=== PATIENT | female | born 1990 ===

== ENCOUNTER 2021-02-03 05:10 | Emergency (ER) | payer SELFPAY ==
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
--- NOTE | 2021-02-03 05:51 | CR ---
For Patients: As a result of the Cures Act, medical imaging exams and procedure reports are released immediately into your electronic medical record. You may view this report before your referring provider. If you have questions, please contact your health care provider. INDICATION: Pain, laceration. TECHNIQUE: Right elbow radiographs, 3 views. COMPARISON: None available. FINDINGS: Posterior elbow demonstrates large soft tissue irregularity overlying the olecranon. No radiopaque foreign body or soft tissue gas identified. No dislocation, acute fracture, or definite joint effusion. The joint spaces appear maintained. IMPRESSION: Right posterior elbow soft tissue injury. No acute osseous abnormality or radiopaque foreign body. Dictated by Joel Bourne MD @ 02/03/2021 5:49:03 AM Dictated by: Joel Bourne MD @ 02/03/2021 05:49:12 (Electronically Signed)
== END 2021-02-03 06:53 ==
LOC: MW.ED 05:10
DX: S51.011A Laceration without foreign body of right elbow, initial encounter (principal); Z23 Encounter for immunization; Y04.0XXA Assault by unarmed brawl or fight, initial encounter
CPT/HCPCS: 12002; 73080-26-RT; 73080-RT; 90471; 99283; 99284-25

== ENCOUNTER 2024-08-16 16:15 | Emergency (ER) | payer OTHER | END 2024-08-16 17:42 | disposition left against medical advice (07) | LOC: MW.ED 16:15 | DX: Z53.21 Procedure and treatment not carried out due to patient leaving prior to being seen by health care provider (principal) ==